=== PATIENT | male | born 1965 | race Caucasian/White ===

== ENCOUNTER 2016-08-12 13:19 | Outpatient (CLI) | payer MEDICARE, MEDICAID ==
[2016-08-12 15:31] LABS: Anion Gap 20 mmol/L (10-20); BUN (Urea Nitrogen) 17 mg/dL (8.4-25.7); Calc. Creatinine Clearance 0 mL/min (70-130); Calcium 9.3 mg/dL (7.8-10.44); Carbon Dioxide 25 mmol/L (22-29); Chloride 101 mmol/L (98-107); Estimated GFR-MDRD Greater than 90
== END 2016-08-12 13:20 | disposition home or self-care (01) ==
LOC: NAVSJIPCSP 13:19
PROVIDERS: ATTEND Family Medicine
DX: R32 Unspecified urinary incontinence (principal); I10 Essential (primary) hypertension; E53.8 Deficiency of other specified B group vitamins; N35.9 Urethral stricture, unspecified; K21.9 Gastro-esophageal reflux disease without esophagitis; E66.01 Morbid (severe) obesity due to excess calories; L89.90 Pressure ulcer of unspecified site, unspecified stage; Z79.899 Other long term (current) drug therapy
CPT/HCPCS: 36415; 80048; 84443

== ENCOUNTER 2017-12-19 06:22 | Emergency (ER) | payer MEDICARE, OTHER ==
[2017-12-19 07:23] LABS: Bilirubin Negative (Negative); Blood, Urine Large (Negative); Glucose, Urine (Dipstick) Negative (Negative); Leukocyte Moderate (Negative); Nitrite Negative (Negative); Protein, Urine (Dipstick) 100 mg/dL (Neg-Trace); pH, Urine 5.5 (5.0-9.0)
[2017-12-19 07:24] LABS: Clarity Hazy (Clear)
[2017-12-19 07:26] LABS: RBC/HPF 21-50 HPF (0-3); Squamous Epithelial 0-3 HPF (0-3)
[2017-12-19 07:27] LABS: Bacteria/HPF 1+ HPF (None Seen)
== END 2017-12-19 07:53 ==
LOC: NAV ERS 06:22
DX: N39.0 Urinary tract infection, site not specified (principal); I10 Essential (primary) hypertension; K21.9 Gastro-esophageal reflux disease without esophagitis; F41.9 Anxiety disorder, unspecified; F32.9 Major depressive disorder, single episode, unspecified
CPT/HCPCS: 51798; 81003; 81015; 87086

== ENCOUNTER 2019-03-28 17:29 | Emergency (ER) | payer MEDICARE, OTHER ==
[~2019-03-28 17:29] MED LIST: Iopamidol 370 76% 100 ML VIAL ONE
[2019-03-28 19:09] LABS: Bilirubin Negative (Negative); Blood, Urine Large (Negative); Clarity Slightly Cloudy (Clear); Glucose, Urine (Dipstick) Negative (Negative); Leukocyte Moderate (Negative); Nitrite Positive (Negative); Protein, Urine (Dipstick) 100 mg/dL (Neg-Trace)
[2019-03-28 19:40] LABS: Bacteria/HPF 2+ HPF (None Seen); Squamous Epithelial 0-3 HPF (0-3)
--- NOTE | 2019-03-28 20:02 | CT ---
CT ABDOMEN AND PELVIS WITH IV CONTRAST 03/28/2019 CLINICAL INFORMATION: Right-sided chest and abdominal pain. COMPARISON: 10/27/2018 Technique: Multiple contiguous axial CT images are obtained through the abdomen and pelvis with IV contrast. Cor onal reformatted images are provided. FINDINGS: Lower Chest: Linear density is again partially imaged at the right lung base also seen on prior study may represent mild scarring. Vessels: Vascular calcifications are seen in the abdominal aorta and involving the iliac arteries. Abdomen: Portal vein:Patent Gallbladder: Within normal limits for CT imaging. Liver: Diminished attenuation similar to prior study and likely related to fatty infiltration. Spleen: Single splenic granuloma is present. Pancreas: within normal limits. Adrenals: within normal limits. Kidneys: There is mild scarring involving each kidney greater on the right. A subcentimeter too small to characterize hypodense lesion is seen in the midportion right kidney. Bowel: As noted on the prior exam, there is a sigmoid volvulus with dilatation and gaseous distention of the colon proximal to this region. There is mild inflammatory stranding seen at site of sigmoid volvulus and at the site of decompression of the colon due to the volvulus. The degree of gaseous dis tention of the colon is less than on the prior exam, but largest dilated loop of colon measures approximately 9.5 cm. No dilated loops of small bowel are identified. Peritoneum: No ascites or free air; no fluid collection. Mesentery and Retroperitoneum: No enlarged mesenteric or retroperitoneal lymph nodes. Abdominal Wall: There is eventration of the ventral abdominal wall. Pelvis: Reproductive Organs: No pelvic masses. Pelvis within normal limits. Bladder: A suprapubic catheter remains in place, the urinary bladder is completely decompressed. Bones: Degenerative changes are seen in the spine. There is fusion of the L2 and L3 vertebral bodies. IMPRESSION: As noted on the prior examination, there is evidence of a sigmoid volvulus with associated colonic ob struction. The distended gas-filled loops of bowel proximal to the volvulus measure approximately 9.5 cm in greatest dimension. Urgent surgical consultation is recommended. 2. Above findings were discussed with Dr. Danielle in the emergency department on 03/28/2019 at 1957 h [facility].
[2019-03-28] MEDS ORDERED: Sodium Chloride 0.9% 100 ML ONE ×2 (20:23→20:24)
[2019-03-28] MEDS ORDERED: cefTRIAXone\\ROCEPHIN 1 GM VIAL ONE (20:23)
[2019-03-28] MEDS ORDERED: Fentanyl 100 MCG/2 ML VIAL ONE (20:39)
== END 2019-03-28 21:15 | disposition short-term general hospital (02) ==
LOC: NAV ERS 17:29
DX: K56.2 Volvulus (principal); N39.0 Urinary tract infection, site not specified; R07.9 Chest pain, unspecified; E66.9 Obesity, unspecified; E11.9 Type 2 diabetes mellitus without complications; I10 Essential (primary) hypertension; G47.00 Insomnia, unspecified; K21.9 Gastro-esophageal reflux disease without esophagitis; Z79.899 Other long term (current) drug therapy
CPT/HCPCS: 74177; 81003; 81015; 84484; 87070; 87077; 87086; 87186; 87205; 93005; 96365; 96375; J0696; J3010; J3490; Q9967

== ENCOUNTER 2022-02-02 20:02 | Emergency (ER) | payer MEDICARE, OTHER ==
[2022-02-02] MEDS ORDERED: Bacitracin 1 PK ONE (20:13)
[2022-02-02] MEDS ORDERED: Boostrix 0.5 ML (Tdap) VIAL ONE (20:30)
== END 2022-02-02 21:40 ==
LOC: NAV ERS 20:02
DX: S81.812A Laceration without foreign body, left lower leg, initial encounter (principal); K21.9 Gastro-esophageal reflux disease without esophagitis; E11.9 Type 2 diabetes mellitus without complications; I10 Essential (primary) hypertension; Z79.899 Other long term (current) drug therapy; X58.XXXA Exposure to other specified factors, initial encounter
CPT/HCPCS: 90471; 90715